=== PATIENT | male | born 1985 | race Caucasian/White ===

== ENCOUNTER 2019-07-31 10:04 | Inpatient (IN) | payer BC ==
[~2019-07-31] VITALS: Ht 180.3 cm; Wt 142.6 kg
[2019-07-31] MEDS ORDERED: MORPHINE SULFATE 2 MG/ML SYR 1ML IV STA (11:00)
[2019-07-31] MEDS ORDERED: ONDANSETRON HCL INJ 2MG/ML 2ML 2 MG/ML VIAL IV ONE (11:00)
[2019-07-31 12:23] LABS: BASOPHILS # (AUTO) 0.1 (0.0-0.1); BASOPHILS % 1.1 % (0.0-1.0); EOSINOPHILS # (AUTO) 0.4 (0.0-0.4); HEMATOCRIT 30.2 % (38.2-49.6); HEMOGLOBIN 9.7 g/dL (14.0-18.0); LYMPHOCYTES # (AUTO) 1.1 (1.0-3.2); LYMPHOCYTES % 15.4 % (18.0-39.1); MEAN CORPUSCULAR HEMOGLOBIN 30.4 pg (28-32); MEAN CORPUSCULAR HGB CONC 32.1 g/dL (31-35); MEAN CORPUSCULAR VOLUME 94.7 fL (81-99); MONOCYTES # (AUTO) 0.7 (0.2-0.8); MONOCYTES % 9.8 % (4.4-11.3); NEUTROPHILS % 67.3 % (38.7-80.0); PLATELET COUNT 70 x10e3/uL (140-360); RED BLOOD COUNT 3.19 x10e6/uL (4.3-5.7); RED CELL DISTRIBUTION WIDTH 16.7 % (11.7-14.4)
[2019-07-31 12:27] LABS: BILIRUBIN,URINE NEGATIVE (NEGATIVE); CLARITY,URINE CLEAR (CLEAR); COLOR,URINE YELLOW (YELLOW); KETONES,URINE NEGATIVE (NEGATIVE); LEUKOCYTE ESTERASE ,URINE TRACE (NEGATIVE); NITRITE,URINE POSITIVE (NEGATIVE); PROTEIN,URINE DIPSTICK TRACE (NEGATIVE); URINE UROBILINOGEN 0.2 mg/dL (0.2 - 1)
[2019-07-31 12:28] LABS: INR 1.59; PROTHROMBIN TIME 19.6 seconds (11.9-14.5)
[2019-07-31 12:29] LABS: PARTIAL THROMBOPLASTIN TIME 34.5 seconds (23.8-35.5)
[2019-07-31] MEDS ORDERED: MORPHINE SULFATE INJ 4 MG/ML INJ 1ML IV ONE (12:30)
[2019-07-31 12:38] LABS: ALANINE AMINOTRANSFERASE 21 IU/L (0-55); ALBUMIN/GLOBULIN RATIO 0.9 (0.8-2.0); ALKALINE PHOSPHATASE 68 IU/L (40-150); AMYLASE 56 U/L (25-125); ANION GAP 11.3 mmol/L (8-16); BLOOD UREA NITROGEN 14 mg/dL (7-26); BUN/CREATININE RATIO 16 (6-25); CALCIUM 8.3 mg/dL (8.4-10.2); CARBON DIOXIDE 24 mmol/L (22-29); CHLORIDE 104 mmol/L (98-107); CREATINE KINASE 111 IU/L (30-200); CREATININE, SERUM 0.85 mg/dL (0.72-1.25); EST GLOMERULAR FILTRATION RATE > 60 ML/MIN (60-); GLUCOSE 106 mg/dL (74-118); LIPASE 11 U/L (8-78); POTASSIUM 3.3 mmol/L (3.5-5.1); SODIUM 136 mmol/L (136-145)
--- NOTE | 2019-07-31 13:22 | Diagnostic Imaging Report ---
EXAMINATION: CHEST SINGLE (PORTABLE) INDICATION: Abdominal pain COMPARISON: None FINDINGS: LINES/TUBES:EKG leads overlie the chest. LUNGS:The lung volumes are low. No focal consolidation or pulmonary edema. PLEURA:No pleural effusion or pneumothorax. MEDIASTINUM:The cardiomediastinal silhouette appears normal in size and shape. BONES/SOFT TISSUES:No acute osseous injury. ABDOMEN:No free air under the diaphragm. IMPRESSION: Low lung volumes. No focal pneumonia or pulmonary edema. Signed by: Hernan Diaz MD on 07/31/2019 1:18 PM
[2019-07-31 13:34] LABS: BACTERIA,URINE RARE /HPF; EPITHELIAL CELLS,URINE FEW /LPF
[2019-07-31] MEDS ORDERED: HYDROCORTISONE SOD SUCCINATE 100 MG VIAL IV ONE (14:45)
--- NOTE | 2019-07-31 14:49 | Diagnostic Imaging Report ---
EXAM: CT Abdomen and Pelvis WITHOUT intravenous contrast INDICATION: Left abdominal pain COMPARISON: None. TECHNIQUE: Abdomen and pelvis were scanned utilizing a multidetector helical scanner from the lung base to the pubic symphysis without administration of IV contrast. Coronal and sagittal reformations were obtained. IV CONTRAST: None ORAL CONTRAST: Gastrografin COMPLICATIONS: None RADIATION DOSE: Total DLP: 1380.0 mGy*cm Dose modulation, iterative reconstruction, and/or weight based adjustment of the mA/kV was utilized to reduce the radiation dose to as low as reasonably achievable. FINDINGS: LOWER THORAX: Dependent subsegmental atelectasis at the right lower lobe. Moderate right pleural effusion. HEPATOBILIARY: The liver appears from can with the nodular surface contour consistent with cirrhosis. The main portal vein and splenic vein are enlarged. There are numerous extensive portosystemic collaterals. SPLEEN: Hypodense lesions in the spleen measure 2.9 cm superiorly and 5.6 cm inferiorly. The ascites along the lateral aspect of the spleen contains a hyperdense component, raising concern for possible splenic rupture or hemorrhage from the mass at the inferior aspect of the spleen. PANCREAS: No focal masses or ductal dilatation. ADRENALS: No adrenal nodules. KIDNEYS/URETERS: No hydronephrosis, stones, or solid mass lesions. PELVIC ORGANS/BLADDER: Unremarkable. PERITONEUM / RETROPERITONEUM: Large volume abdominal ascites. LYMPH NODES: No lymphadenopathy. VESSELS: Unremarkable. GI TRACT: Mild ascending and transverse colon wall thickening, possibly related to portal colopathy. No bowel obstruction. BONES AND SOFT TISSUES: No acute osseous injury. No suspicious lytic or blastic lesions. IMPRESSION: Hypodense lesions in the spleen measure 2.9 cm superiorly and 5.6 cm inferiorly. The ascites along the lateral aspect of the spleen contains a hyperdense component, raising concern for possible splenic rupture or hemorrhage from the mass at the inferior aspect of the spleen. Severe hepatic cirrhosis and portal hypertension with large volume of abdominal ascites and hepatic hydrothorax. Extensive portosystemic collaterals. RECOMMENDATIONS: Urgent contrast enhanced CT to assess for active extravasation from possible splenic rupture. Patient has a contrast allergy and as he is currently hemodynamically stable, will be premedicated per discussion with Dr. Knight. The above findings were discussed with Dr. Knight on 07/31/2019 2:14 PM, who responded indicating that the communication was understood. Signed by: Hernan Diaz MD on 07/31/2019 2:46 PM
[2019-07-31] MEDS ORDERED: VANCOMYCIN 1GM/NS 250 ML 250 ML IV ONE (15:30)
[2019-07-31] MEDS: CEFEPIME 2 GM/NS 0.9% 100 ML 100 ML IV SCH (15:40)
[2019-07-31] MEDS ORDERED: PANTOPRAZOLE 40 MG 10ML VIAL IV STA (15:49)
[2019-07-31] MEDS ORDERED: OCTREOTIDE ACETATE 500 MCG in SODIUM CHLORIDE 0.9% 500ML 1 ML IV SCH (16:00)
[2019-07-31] MEDS ORDERED: OCTREOTIDE ACETATE 0.05 MG/ML AMP IV ONE (16:00)
[2019-07-31] MEDS ORDERED: ONDANSETRON HCL INJ 2MG/ML 2ML 2 MG/ML VIAL IV PRN (16:00)
[2019-07-31] MEDS: OCTREOTIDE ACETATE 500 MCG in SODIUM CHLORIDE 0.9% 250ML 250 ML IV SCH (16:20)
[2019-07-31] MEDS ORDERED: DIPHENHYDRAMINE HCL INJ 50 MG/ML VIAL IV ONE (16:40)
--- NOTE | 2019-07-31 17:17 | NUR ---
SPOKE TO MARIE, PLASMA READY. PRIMARY NURSE AWARE
--- OUTSIDE RECORDS SUMMARY | 2019-07-31 17:21 | XMS REPORT ---
[facility] Address Unknown Phone Unavailable Care Team Providers Care Pairer Substandard Name Role Phone Blanca NEIL Unavailable Unavailable Problems This patient has no known problems. Allergies, Adverse Reactions, Alerts This patient has no known allergies or adverse reactions. Medications This patient has no known medications. Results Test Description Test Time Test Comments Text Results Atomic Results Result Comments CT ABDOMEN/PELVIS WO 2019-07-31 14:14:00 [facility] [address] [address] Patient Name: TRACY LEARY MR #: [id number] : 1985 Age/Sex: 34/M Req #: [id number] Adm Physician: Ordered by: KEESHA NEIL MD Report #: [id number] Location: ER Room/Bed: Procedure: [id number] CT/CT ABDOMEN/PELVIS WO Exam Date: 07/31/19 Exam Time: 1350 REPORT STATUS: Signed EXAM: CT Abdomen and Pelvis WITHOUT intravenous contras t INDICATION: Left abdominal pain COMPARISON: None. TECHNIQUE: Abdomen and pelvis were scanned utilizing a multidetector helical scanner from the lung base to the pubic symphysis without administration of IV contrast. Coronal and sagittal reformations were obtained. IV CONTRAST: None ORAL CONTRAST: Gastrografin COMPLICATIONS: None RADIATION DOSE: Total DLP: 1380.0 mGy*cm Dose modulation, iterative reconstruction, and/or weight based adjustment of the mA/kV was utilized to reduce the radiation dose to as low as reasonably achievable. FINDINGS: LOWER THORAX: Dependent subsegmental atelectasis at the right lower lobe. Moderate right pleural effusion. HEPATOBILIARY: The liver appears from can with the nodular surface contour consistent with cirrhosis. The main portal vein and splenic vein are enlarged. There are numerous extensive portosystemic collaterals. SPLEEN: Hypodense lesions in the spleen measure 2.9 cm superiorly and 5.6 cm inferiorly. The ascites along the lateral aspect of the spleen contains a hyperdense component, raising concern for possible splenic rupture or hemorrhage from the mass at the inferior aspect of the spleen. PANCREAS: No focal masses or ductal dilatation. ADRENALS: No adrenal nodules. KIDNEYS/URETERS: No hydronephrosis, stones, or solid mass lesions. PELVIC ORGANS/BLADDER: Unremarkable. PERITONEUM / RETROPERITONEUM: Large volume abdominal ascites. LYMPH NODES: No lymphadenopathy. VESSELS: Unremarkable. GI TRACT: Mild ascending and transverse colon wall thickening, possibly related to portal colopathy. No bowel obstruction. BONES AND SOFT TISSUES: No acute osseous injury. No suspicious lytic or blastic lesions. IMPRESSION: Hypodense lesions in the spleen measure 2.9 cm superiorly and 5.6 cm inferiorly. The ascites along the lateral aspect of the spleen contains a hyperdense component, raising concern for possible splenic rupture or hemorrhage from the mass at the inferior aspect of the spleen. Severe hepatic cirrhosis and portal hypertension with large volume of abdominal ascites and hepatic hydrothorax. Extensive portosystemic collaterals. RECOMMENDATIONS: Urgent contrast enhanced CT to assess for active extravasation from possible splenic rupture. Patient has a contrast allergy and as he is currently hemodynamically stable, will be premedicated per discussion with Dr. Neil. The above findings were discussed with Dr. Neil on 07/31/2019 2:14 PM, who responded indicating that the communication was understood. Signed by: Edel Steele MD on 07/31/2019 2:46 PM Dictated By: EDEL STEELE MD [id number] Transcribed By: JAY on 07/31/19 1446 COPY TO: KEESHA NEIL MD CHEST SINGLE (PORTABLE) 2019-07-31 13:18:[address] [place], [place] [address] Patient Name: TRACY LEARY MR #: [id number] : 1985 Age/Sex: 34/M Req #: [id number] [facility] Physician: Ordered by: KEESHA NEIL MD Report #: [id number] Location: ER Room/Bed: Procedure: [id number] DX/CHEST SINGLE (PORTABLE) Exam Date: Exam Time: REPORT STATUS: Signed EXAMINATION: CHEST SINGLE (PORTABLE) INDICATION: Abd ominal pain COMPARISON: None FINDINGS: LINES/TUBES:EKG leads overlie the chest. LUNGS:The lung volumes are low. No focal consolidation or pulmonary edema. PLEURA:No pleural effusion or pneumothorax. MEDIASTINUM:The cardiomediastinal silhouette appears normal in size and shape. BONES/SOFT TISSUES:No acute osseous injury. ABDOMEN:No free air under the diaphragm. IMPRESSION: Low lung volumes. No focal pneumonia or pulmonary edema. Signed by: Edel Steele MD on 07/31/2019 1:18 PM Dictated By: EDEL STEELE MD Transcribed By: JAY on 07/31/191317 COPY TO: KEESHA NEIL MD
[2019-07-31] MEDS ORDERED: SODIUM CHLORIDE 0.9% 250ML 250 ML ONE (17:26)
--- NOTE | 2019-07-31 17:38 | Diagnostic Imaging Report ---
EXAM: CT Abdomen and Pelvis WITHOUT and WITH intravenous contrast INDICATION: Left abdominal pain COMPARISON: None. TECHNIQUE: Abdomen and pelvis were scanned utilizing a multidetector helical scanner from the lung base to the pubic symphysis after administration of IV contrast. Coronal and sagittal reformations were obtained. Routine protocol was performed. Scan was performed during portal venous phase. IV CONTRAST: 100mL of Isovue 370 ORAL CONTRAST: None COMPLICATIONS: None RADIATION DOSE: Total DLP: 3391.9 mGy*cm Dose modulation, iterative reconstruction, and/or weight based adjustment of the mA/kV was utilized to reduce the radiation dose to as low as reasonably achievable. FINDINGS: LOWER THORAX: Dependent subsegmental atelectasis at the right lower lobe. Moderate right pleural effusion. HEPATOBILIARY: The liver appears shrunken with nodular surface contour consistent with cirrhosis. The main portal vein and splenic vein are enlarged. There are numerous extensive portosystemic collaterals. SPLEEN: Hypodense lesions in the spleen measure 2.9 cm superiorly and 5.6 cm inferiorly, possibly representing infarcts. There are numerous collateral vessels posterior to the spleen associated with splenorenal shunt. PANCREAS: No focal masses or ductal dilatation. ADRENALS: No adrenal nodules. KIDNEYS/URETERS: No hydronephrosis, stones, or solid mass lesions. PELVIC ORGANS/BLADDER: Unremarkable. PERITONEUM / RETROPERITONEUM: Large volume abdominal ascites. LYMPH NODES: No lymphadenopathy. VESSELS: Extensive portosystemic collaterals as above. GI TRACT: Mild ascending and transverse colon wall thickening, possibly related to portal colopathy. No bowel obstruction. BONES AND SOFT TISSUES: No acute osseous injury. No suspicious lytic or blastic lesions. IMPRESSION: Severe hepatic cirrhosis and portal hypertension with large volume of abdominal ascites and hepatic hydrothorax. Extensive portosystemic collaterals. The hyperdense material seen on the previous exam along the dependent aspect of the left abdominal are collateral vessels associated with a splenorenal shunt. Hypodense lesions in the spleen measure 2.9 cm superiorly and 5.6 cm inferiorly and may represent infarcts versus less likely a lymphoproliferative process. Signed by: Hernan Diaz MD on 07/31/2019 5:34 PM
--- NOTE | 2019-07-31 17:45 | NUR ---
started FFP as ordered
[2019-07-31] MEDS ORDERED: SODIUM CHLORIDE 0.9% 50ML 50 ML ONE (17:58)
[2019-07-31] MEDS ORDERED: IOPAMIDOL 370 MG/ML 200 ML INFUS..BTL INJ ONE (17:58)
--- NOTE | 2019-07-31 18:14 | NUR ---
completed FFP, LYNETTE noted
[2019-07-31 20:30] VITALS: BP_SYST 121; BP_SYST 141; BP_DIAS 58; BP_DIAS 74
[2019-07-31 20:59] VITALS: BP 121/58
[2019-07-31 21:00] VITALS: BP 128/67
[2019-07-31] MEDS ORDERED: HYDROCODONE/APAP 5MG-325MG TAB PO PRN (21:00)
[2019-07-31] MEDS ORDERED: ACETAMINOPHEN 325 MG TAB PO PRN (21:00)
[2019-07-31] MEDS: PANTOPRAZOLE 40 MG 10ML VIAL IV SCH (21:02)
[2019-07-31 21:30] LABS: EOSINOPHILS % 0.3 % (0.0-6.0); HEMOGLOBIN 7.7 g/dL (14.0-18.0); LYMPHOCYTES # (AUTO) 0.3 (1.0-3.2); LYMPHOCYTES % 9.9 % (18.0-39.1); MEAN CORPUSCULAR HEMOGLOBIN 30.2 pg (28-32); MEAN CORPUSCULAR HGB CONC 32.1 g/dL (31-35); MEAN CORPUSCULAR VOLUME 94.1 fL (81-99); MONOCYTES # (AUTO) 0.1 (0.2-0.8); MONOCYTES % 4.8 % (4.4-11.3); NEUTROPHILS # (AUTO) 2.5 (2.1-6.9); NEUTROPHILS % 84.7 % (38.7-80.0); PLATELET COUNT 50 x10e3/uL (140-360); RED BLOOD COUNT 2.55 x10e6/uL (4.3-5.7); RED CELL DISTRIBUTION WIDTH 16.9 % (11.7-14.4)
[2019-07-31 22:00] VITALS: BP 144/81
--- NOTE | 2019-07-31 22:37 | NUR ---
Notified Dr. Trujillo of CBC results. order received to transfuse 2 PRBC if Hgb <7.0 aware that 2 PRBCs are currently on hold.
[2019-07-31 23:00] VITALS: BP 145/69
[2019-08-01] VITALS (23 sets, daily range): BP systolic 104–143; BP diastolic 50–77
--- NOTE | 2019-08-01 02:20 | Consultation ---
DATE OF CONSULTATION: 07/31/2019 CHIEF COMPLAINT: Abdominal pain and diarrhea. HISTORY OF PRESENT ILLNESS: The patient is a 34-year-old male with known history of liver cirrhosis, secondary to fatty liver/ELY. The patient has been having chronic abdominal pain, particularly in the left upper quadrant which has been intensified of late and associating with diarrhea. The patient denies vomiting or hematemesis. PAST MEDICAL HISTORY: As mentioned, positive for liver cirrhosis. SOCIAL HABITS: The patient denies smoking or drinking alcohol. REVIEW OF SYSTEMS: He denied chest pain or shortness of breath. He denied history of hepatitis. PHYSICAL EXAMINATION: VITAL SIGNS: Stable, afebrile. GENERAL: He is awake, alert, in smrr-ut-zhstacak discomfort. HEENT: Sclerae nonicteric. NECK: Supple. LUNGS: Clear. HEART: Regular rate and rhythm. ABDOMEN: Distended with ascites. There is some guarding in the upper abdomen on the left side without any rebound. EXTREMITIES: With some ankle edema. LABORATORY DATA: The patient's white cell count is 7, hemoglobin of 9.7, platelet count 70. Creatinine is 0.8. Liver function tests show bilirubin of 2.4, alkaline phosphatase 68. CT of the abdomen show evidence of severe hepatic cirrhosis with portal hypertension and large varices in the left upper abdomen associated with splenorenal shunt. There is also evidence of splenic infarct. ASSESSMENT: Abdominal pain, diarrhea in a patient with liver cirrhosis. Splenic infarct is the underlying cause of pain. PLAN: Diet as tolerated. Pain management. We will follow the patient. MD GEOVANI Garcia/MODFrank /[id number]
[2019-08-01] MEDS ORDERED: SODIUM CHLORIDE 0.9% 250ML 250 ML ONE (03:00)
[2019-08-01] MEDS: OCTREOTIDE ACETATE 500 MCG in SODIUM CHLORIDE 0.9% 250ML 250 ML IV SCH ×2 (03:28→11:08)
[2019-08-01] MEDS: CEFEPIME 2 GM/NS 0.9% 100 ML 100 ML IV SCH ×2 (03:28→15:05)
[2019-08-01 05:15] LABS: BASOPHILS % 0.3 % (0.0-1.0); EOSINOPHILS % 0.2 % (0.0-6.0); HEMATOCRIT 24.1 % (38.2-49.6); HEMOGLOBIN 7.7 g/dL (14.0-18.0); LYMPHOCYTES # (AUTO) 0.7 (1.0-3.2); LYMPHOCYTES % 11.4 % (18.0-39.1); MEAN CORPUSCULAR HEMOGLOBIN 30.2 pg (28-32); MEAN CORPUSCULAR VOLUME 94.5 fL (81-99); MONOCYTES # (AUTO) 0.8 (0.2-0.8); MONOCYTES % 13.5 % (4.4-11.3); NEUTROPHILS # (AUTO) 4.5 (2.1-6.9); NEUTROPHILS % 74.3 % (38.7-80.0); PLATELET COUNT 55 x10e3/uL (140-360); RED BLOOD COUNT 2.55 x10e6/uL (4.3-5.7); RED CELL DISTRIBUTION WIDTH 16.8 % (11.7-14.4)
[2019-08-01 05:27] LABS: INR 1.54; PROTHROMBIN TIME 19.1 seconds (11.9-14.5)
[2019-08-01 05:33] LABS: ALANINE AMINOTRANSFERASE 20 IU/L (0-55); ALBUMIN 2.8 g/dL (3.5-5.0); ALBUMIN/GLOBULIN RATIO 0.9 (0.8-2.0); ALKALINE PHOSPHATASE 57 IU/L (40-150); ANION GAP 10.2 mmol/L (8-16); BLOOD UREA NITROGEN 19 mg/dL (7-26); BUN/CREATININE RATIO 18 (6-25); CALCIUM 8.1 mg/dL (8.4-10.2); CARBON DIOXIDE 25 mmol/L (22-29); CHLORIDE 103 mmol/L (98-107); CREATININE, SERUM 1.08 mg/dL (0.72-1.25); EST GLOMERULAR FILTRATION RATE > 60 ML/MIN (60-); GLUCOSE 135 mg/dL (74-118); SODIUM 134 mmol/L (136-145)
[2019-08-01 05:36] LABS: POTASSIUM 4.2 mmol/L (3.5-5.1)
[2019-08-01] MEDS: PANTOPRAZOLE 40 MG 10ML VIAL IV SCH ×2 (08:02→20:00)
[2019-08-01 12:34] LABS: BASOPHILS % 0.5 % (0.0-1.0); EOSINOPHILS # (AUTO) 0.1 (0.0-0.4); EOSINOPHILS % 1.5 % (0.0-6.0); HEMATOCRIT 23.8 % (38.2-49.6); HEMOGLOBIN 7.6 g/dL (14.0-18.0); LYMPHOCYTES # (AUTO) 0.8 (1.0-3.2); LYMPHOCYTES % 14.1 % (18.0-39.1); MEAN CORPUSCULAR HGB CONC 31.9 g/dL (31-35); MEAN CORPUSCULAR VOLUME 94.1 fL (81-99); MONOCYTES # (AUTO) 0.6 (0.2-0.8); MONOCYTES % 11.5 % (4.4-11.3); NEUTROPHILS % 72.2 % (38.7-80.0); PLATELET COUNT 59 x10e3/uL (140-360); RED BLOOD COUNT 2.53 x10e6/uL (4.3-5.7)
--- NOTE | 2019-08-01 15:00 | NUR ---
Dr. Fowler's office contacted and informed of new consult.
[2019-08-01 19:09] LABS: BASOPHILS % 0.6 % (0.0-1.0); EOSINOPHILS # (AUTO) 0.1 (0.0-0.4); HEMATOCRIT 24.3 % (38.2-49.6); HEMOGLOBIN 7.7 g/dL (14.0-18.0); LYMPHOCYTES # (AUTO) 0.9 (1.0-3.2); LYMPHOCYTES % 17.3 % (18.0-39.1); MEAN CORPUSCULAR HEMOGLOBIN 30.1 pg (28-32); MEAN CORPUSCULAR HGB CONC 31.7 g/dL (31-35); MEAN CORPUSCULAR VOLUME 94.9 fL (81-99); MONOCYTES # (AUTO) 0.7 (0.2-0.8); MONOCYTES % 13.9 % (4.4-11.3); NEUTROPHILS # (AUTO) 3.3 (2.1-6.9); NEUTROPHILS % 65.8 % (38.7-80.0); RED BLOOD COUNT 2.56 x10e6/uL (4.3-5.7); RED CELL DISTRIBUTION WIDTH 17.1 % (11.7-14.4)
[2019-08-01 19:11] LABS: PLATELET COUNT 58 x10e3/uL (140-360)
--- NOTE | 2019-08-01 20:21 | History and Physical ---
CONTINUATION: Also, we are going to order an echocardiogram to rule out a likely possibility of endocarditis or any thrombus coming from the heart. MD ERIC Rossi/CAMPBELL /[id number]
--- NOTE | 2019-08-01 20:51 | History and Physical ---
HISTORY OF PRESENT ILLNESS: The patient is a 34-year-old male with past medical history only positive for idiopathic cirrhosis of the liver, came here with abdominal pain. He was found to have splenic infarct. He was admitted to intensive care unit, seen by Dr. Nam. Started octreotide. The patient is on Protonix. The patient is going to be seen by program evaluation consultant also. REVIEW OF SYSTEMS: CARDIOVASCULAR: No chest pain or palpitation. RESPIRATORY: No shortness of breath. No cough. GASTROINTESTINAL: No nausea, vomiting, or diarrhea. He did have a left upper quadrant pain, which is completely resolved. EXTREMITIES: Show no evidence of cyanosis or hematoma. LABORATORY DATA: On the BMP; sodium 134, potassium 4.2, chloride 103, CO2 of 25, BUN 19, creatinine 1.08, and glucose 135. On the CBC, white blood count 5.47, hemoglobin 7.6, hematocrit 23.8, and platelet count 59,000. PT 19.1, INR 1.54, and PTT 38.0. AST 25, ALT 20, total bilirubin 1.8, and alkaline phosphatase 57. CT of the abdomen shows some evidence of splenic infarct, cirrhosis of the liver, portal hypertension. Urine culture show evidence of gram-negative bacteria. FINAL IMPRESSION: 1. Splenic infarct. 2. Cirrhosis of the liver. 3. Pancytopenia. 4. Obesity. 5. Urinary tract infection. 6. Coagulopathy. 7. Portal hypertension. PLAN OF TREATMENT: We are going to continue cefepime 1 g IV twice a day. Continue with Zofran 4 mg IV every 4 hours as needed, Protonix 40 mg twice a day, Tylenol 325 mg every 4 hours as needed, and [place] 5/325 mg every 6 hours as needed for gjysjttb-cr-yeywhg pain. Dr. Nam consulted from the surgical point of view because originally according to the emergency room physician, there was some evidence of hematoma of the spleen, but later on turned to be just a splenic infarct. We are going to also get a Gastroenterology consult with Dr. Fowler for further evaluation of the origin of the splenic infarct. MD ERIC Rossi/MODL /[id number]
[2019-08-01] MEDS ORDERED: LACTULOSE SYRUP 20 GM/30 ML UDC PO PRN (21:45)
--- NOTE | 2019-08-01 23:30 | NUR ---
Discussed planned thoracentesis and paracentesis with patient. Patient agreed to procedures but would like to speak with MD before signing consent. Unsigned consents on chart. Provided patient written education material on procedures and new medication.
[2019-08-01] MEDS: RIFAXIMIN 550 MG TABLET PO SCH (23:45)
[2019-08-02] VITALS (7 sets, daily range): BP systolic 117–166; BP diastolic 62–86
[2019-08-02] MEDS: CEFEPIME 2 GM/NS 0.9% 100 ML 100 ML IV SCH ×2 (03:25→16:23)
--- NOTE | 2019-08-02 05:09 | Consultation ---
DATE OF CONSULTATION: 08/01/2019 GI Consult Note REASON FOR CONSULT: 1. Decompensated cryptogenic liver cirrhosis with ascites, portal hypertension, right hepatic hydrothorax. 2. Splenic infarct. HISTORY OF PRESENTING ILLNESS: A 34 years old white male, who has not been seeing any doctor. He has known history of cryptogenic liver cirrhosis with ascites for more than couple of years. He stated that he used to see some gastroenterologists in the past, then he stopped seeing them. The reason for him not to follow with the doctor is not clear. He just ignored about his health. He got admitted to the emergency room with acute onset of mid abdominal pain. Noncontrast CT scan showed possible splenic rupture, however, subsequent CT scan of the abdomen and pelvis with contrast revealed medium-sized splenic infarct. The patient reports no abdominal pain now. He was initially admitted in the ICU, likely going to be transferred to the medical floor today. No episode of any GI bleeding. REVIEW OF SYSTEMS: Twelve-point system reviewed, symptomatology is limited as per HPI. 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 The patient has known history of fatty liver and dyslipidemia. PAST SURGICAL HISTORY: None. SOCIAL HISTORY: No smoking, alcohol, or any illicit drug use. Lives with his mother. FAMILY HISTORY: Noncontributory. ALLERGIES: IODINE. HOME MEDICATIONS: None. Inpatient medications list reviewed as per MAR. PHYSICAL EXAMINATION: VITAL SIGNS: Temperature 98.5, pulse ranging from 110 to 103, respirations 20 to 27, blood pressure 137/63, oxygen saturation 99% on room air. GENERAL: Not in any acute distress. HEENT: Oral mucosa is moist. Slightly icteric sclerae. CVS: S1, S2. Regular. LUNGS: Decreased breath sounds at the right lower lung field, lung sounds relatively clear on the left side. ABDOMEN: Distended, shifting dullness present. Nontender. Abdominal examination is limited, secondary to ascites. No appreciable mass or any hernia. EXTREMITIES: Trace bilateral leg edema. LABORATORY DATA: Sodium 134, potassium 4.2, chloride 103, bicarb 25. BUN 19, creatinine 1.08, glucose 135. Liver enzymes showed a total bilirubin of 1.8 down from 2.4. AST 25, ALT 20, alkaline phosphatase 57, and albumin 2.8. WBC 4.97, hemoglobin down to 7.7 from 9.7, hematocrit 24.3, platelet count 58. PT 19.1, INR 1.54. Urinalysis showed positive nitrite, trace blood, and leukocyte esterase trace. WBC 6 to 10 per high-power field. CT of the abdomen and pelvis with and without contrast showed severe hepatic cirrhosis with portal hypertension, large ascites, and right hepatic hydrothorax. Extensive portosystemic collaterals. The hyperdense material seen on the previous exam along the dependent aspect of left abdomen are collateral vessels associated with splenorenal shunt. Hypodense lesion in the spleen measures 2.9 cm superiorly and 5.6 cm inferiorly. This may represent infarct versus less likely lymphoproliferative process. IMPRESSION: 1. Cryptogenic, likely nonalcoholic steatohepatitis related decompensated liver cirrhosis with large ascites, right hydrothorax, portal hypertension, portosystemic shunting. 2. Splenic infarct. PLAN: First of all, the patient needs strict outpatient management of decompensated liver cirrhosis. I had a detailed discussion about the patient that he is young, he is also a good candidate for liver transplant. New liver means new life. He should definitely not ignore about himself. I have given him my business card. He is going to follow up with me in my office strictly. In the interim, we will put him on low-salt diet. IR consult for right hydrothorax, paracentesis, as well as large volume paracentesis. Start dual diuretics, combination of furosemide and spironolactone in the ratio of 1:4. We will put him on furosemide 40 mg daily and spironolactone 100 mg daily. Lactulose to ensure 1 or 2 bowel movement daily. Xifaxan prophylactically for prevention of hepatic encephalopathy. Definitely, he needs upper endoscopy for screening of varices. [facility] once he starts following with me in the office. In regard to his splenic infarct, nothing to be done. The patient has a good portosystemic circulation. Therefore, I do not suspect any further infarction of the spleen. No portal vein thrombosis reported on CT. I thank Dr. Trujillo for allowing me to participate in the care of this patient. Bruno Whatley MD SA/CAMPBELL /[id number]
[2019-08-02 05:27] LABS: BASOPHILS % 1.1 % (0.0-1.0); EOSINOPHILS # (AUTO) 0.1 (0.0-0.4); EOSINOPHILS % 3.2 % (0.0-6.0); HEMATOCRIT 20.4 % (38.2-49.6); LYMPHOCYTES # (AUTO) 0.5 (1.0-3.2); LYMPHOCYTES % 24.7 % (18.0-39.1); MEAN CORPUSCULAR HEMOGLOBIN 30.7 pg (28-32); MEAN CORPUSCULAR HGB CONC 32.4 g/dL (31-35); MEAN CORPUSCULAR VOLUME 94.9 fL (81-99); MONOCYTES # (AUTO) 0.3 (0.2-0.8); MONOCYTES % 14.7 % (4.4-11.3); NEUTROPHILS # (AUTO) 1.1 (2.1-6.9); NEUTROPHILS % 55.8 % (38.7-80.0); RED BLOOD COUNT 2.15 x10e6/uL (4.3-5.7); RED CELL DISTRIBUTION WIDTH 16.8 % (11.7-14.4)
[2019-08-02 05:33] LABS: HEMOGLOBIN 6.6 g/dL (14.0-18.0)
[2019-08-02 05:36] LABS: PLATELET COUNT 42 x10e3/uL (140-360)
[2019-08-02 06:31] LABS: BASOPHILS % 1.2 % (0.0-1.0); EOSINOPHILS # (AUTO) 0.1 (0.0-0.4); EOSINOPHILS % 4.8 % (0.0-6.0); LYMPHOCYTES # (AUTO) 0.4 (1.0-3.2); LYMPHOCYTES % 24.8 % (18.0-39.1); MEAN CORPUSCULAR HEMOGLOBIN 30.8 pg (28-32); MEAN CORPUSCULAR VOLUME 96.2 fL (81-99); MONOCYTES # (AUTO) 0.2 (0.2-0.8); MONOCYTES % 13.3 % (4.4-11.3); NEUTROPHILS # (AUTO) 0.9 (2.1-6.9); NEUTROPHILS % 55.3 % (38.7-80.0); RED BLOOD COUNT 2.08 x10e6/uL (4.3-5.7); RED CELL DISTRIBUTION WIDTH 16.9 % (11.7-14.4)
[2019-08-02 06:37] LABS: HEMOGLOBIN 6.4 g/dL (14.0-18.0)
[2019-08-02 06:38] LABS: PLATELET COUNT 39 x10e3/uL (140-360)
[2019-08-02 07:29] LABS: EOSINOPHILS % (MANUAL) 4 % (0-7); LYMPHOCYTES % (MANUAL) 25 % (19-48); MONOCYTES % (MANUAL) 14 % (3.4-9.0); NEUTROPHILS % (MANUAL) 57 % (40-74); PLATELET ESTIMATE MARKEDLY DECREASED
[2019-08-02 07:30] LABS: PLATELET MORPHOLOGY COMMENT FEW LARGE; RBC MORPHOLOGY COMMENT NORMAL
[2019-08-02 07:40] LABS: EOSINOPHILS % (MANUAL) 4 % (0-7); LYMPHOCYTES % (MANUAL) 25 % (19-48); MONOCYTES % (MANUAL) 15 % (3.4-9.0); NEUTROPHILS % (MANUAL) 56 % (40-74)
[2019-08-02 07:41] LABS: PLATELET ESTIMATE MARKEDLY DECREASED; PLATELET MORPHOLOGY COMMENT FEW LARGE; RBC MORPHOLOGY COMMENT NORMAL
--- NOTE | 2019-08-02 07:41 | NUR ---
Dr. Trujillo paged through answering service at 0745 regarding CBC levels.
[2019-08-02] MEDS ORDERED: SODIUM CHLORIDE 0.9% 250ML 250 ML IV ONE ×2 (08:15→15:00)
[2019-08-02] MEDS ORDERED: RIFAXIMIN 200 MG TAB PO SCH (09:00)
--- NOTE | 2019-08-02 09:00 | NUR ---
Per Radiology request, paged Dr Trujillo to inquire of need for PLT prior to procedure. Radiologist aware that patient requests to speak with him prior to consenting to procedure. Dr Trujillo ordered transfusion of 2 units platelets.
[2019-08-02] MEDS: PANTOPRAZOLE 40 MG 10ML VIAL IV SCH ×2 (09:55→21:44)
[2019-08-02] MEDS: FUROSEMIDE 40 MG TAB PO SCH (09:55)
[2019-08-02] MEDS: SPIRONOLACTONE 25 MG TAB PO SCH (09:55)
[2019-08-02] MEDS: RIFAXIMIN 550 MG TABLET PO SCH ×2 (09:55→16:23)
[2019-08-02] MEDS ORDERED: DIPHENHYDRAMINE HCL INJ 50 MG/ML VIAL IV PRN (10:45)
--- NOTE | 2019-08-02 13:15 | NUR ---
Dr Trujillo to bedside; orders rec'd. Okay for patient to transfer to Med Surg with telemetry post procedure.
--- NOTE | 2019-08-02 13:30 | NUR ---
Dr Muñoz, hematology, made aware of consult by operations and maintenance technician.
--- NOTE | 2019-08-02 15:30 | NUR ---
Dr Muñoz to bedside, patient updated on plan of care. Patient with questions and concerns regarding the paracentesis and thoracentesis; called Dr Whatley to verify the procedure is indicated and benefits outweigh risks. Per patient request, radiologist to bedside and spoke with patient regarding the procedure, risks and benefits, and consent obtained.
[2019-08-02 16:29] LABS: BASOPHILS % 0.5 % (0.0-1.0); EOSINOPHILS # (AUTO) 0.1 (0.0-0.4); EOSINOPHILS % 3.1 % (0.0-6.0); HEMATOCRIT 24.3 % (38.2-49.6); HEMOGLOBIN 7.9 g/dL (14.0-18.0); LYMPHOCYTES # (AUTO) 0.4 (1.0-3.2); LYMPHOCYTES % 21.4 % (18.0-39.1); MEAN CORPUSCULAR HEMOGLOBIN 30.3 pg (28-32); MEAN CORPUSCULAR HGB CONC 32.5 g/dL (31-35); MEAN CORPUSCULAR VOLUME 93.1 fL (81-99); MONOCYTES # (AUTO) 0.2 (0.2-0.8); MONOCYTES % 10.9 % (4.4-11.3); NEUTROPHILS # (AUTO) 1.2 (2.1-6.9); NEUTROPHILS % 63.6 % (38.7-80.0); RED BLOOD COUNT 2.61 x10e6/uL (4.3-5.7); RED CELL DISTRIBUTION WIDTH 17.5 % (11.7-14.4)
[2019-08-02 16:35] LABS: PLATELET COUNT 57 x10e3/uL (140-360)
--- NOTE | 2019-08-02 16:40 | NUR ---
Spoke with Dr Trujillo regarding WBCs. No new orders.
--- NOTE | 2019-08-02 16:47 | Progress Note ---
DATE: Internal Medicine Progress Note SUBJECTIVE: The patient is getting blood transfusion, platelet transfusion. He went for thoracentesis and paracentesis today due to ascites and pleural effusion. We are going to monitor of course the CBC after the blood transfusion. PHYSICAL EXAMINATION: HEART: Regular rhythm. Normal S1, S2 sound. LUNGS: Clear bilaterally. ABDOMEN: Soft, slightly distended. VITAL SIGNS: Blood pressure 117/63, temperature 98.0, heart rate 85 per minute, respiratory rate 22 per minute, oxygen saturation 99%. LABORATORY DATA: BMP; sodium 134, potassium 4.2, chloride 103, CO2 25, BUN 18, creatinine 1.08, glucose 135. On CBC, white count 1.65, hemoglobin 6.4, hematocrit 20.0, platelet count 39,000. PT 19.1, INR 1.54, PTT 38.0, AST 25, ALT 20, total bilirubin 1.8, alkaline phosphatase 57. IMPRESSION: 1. Splenic infarct. 2. Cirrhosis with ascites. 3. Urinary tract infection. 4. Obesity. 5. Pancytopenia. 6. Right effusion. 7. Coagulopathy secondary to cirrhosis. PLAN OF TREATMENT: Transfuse platelets and PRBC. Continue cefepime 2 g IV twice a day because of UTI. Continue Zofran 4 mg IV q.4 hours as needed, Protonix 40 mg twice a day, furosemide 40 mg daily, Aldactone 100 mg daily, Benadryl 25 mg q.6 hours as needed, Xifaxan 550 mg twice a day. The patient will be moved out of the ICU today. I discussed the case with the patient at the bedside. Time spent around 55 minutes. MD ERIC Rossi/CAMPBELL /[id number]
--- NOTE | 2019-08-02 17:20 | NUR ---
Radiologist to bedside for thoracentesis and paracentesis.
[2019-08-02] MEDS ORDERED: LIDOCAINE HCL 2% LOCAL 20 ML VIAL ONE (17:51)
--- NOTE | 2019-08-02 17:51 | NUR ---
Spoke with Dr Tico Goins regarding Dr Whatley's order for paracentesis and thoracentesis and possible need for testing on the fluid collected. No new orders.
--- NOTE | 2019-08-02 19:00 | NUR ---
Report received. Assumed care. Assessment done. See interventions. IV saline locked. Ambulates to restroom. No c/o or distress observed. Denies pain.
--- NOTE | 2019-08-02 19:03 | Diagnostic Imaging Report ---
A single frontal view of the chest. HISTORY: Abdominal pain, cirrhosis, status post thoracentesis COMPARISON: Lung bases from CT of the abdomen July 31, 2019. DISCUSSION: Portable technique, limits sensitivity of the exam. Soft tissue attenuation partially limits sensitivity of the exam. Multiple overlying artifacts. Tubes/Lines: None Lungs and pleura: Low lung volumes result in bibasilar vascular crowding, accentuation of the pulmonary interstitial markings, central pulmonary vasculature, and the cardiac silhouette. Allowing for these limitations, the findings are as follows: Patchy interstitial and airspace opacities of the right mid to lower lung. Heart and mediastinum: The cardiac silhouette appear(s) within the upper limits of normal. Bones and soft tissues: Appear unremarkable, given this limited exam. IMPRESSION: 1. Right mid to lower lung patchy interstitial and airspace opacities, consider reexpansion edema. 2. No pneumothorax or significant residual effusion is visible. Signed by: Dr. Baldev Tran D.O., M.M.M. on 08/02/2019 7:00 PM
--- NOTE | 2019-08-02 19:06 | NUR ---
Dr Whatley to bedside; orders rec'd. Spoke with Dr Trujillo, made aware of the bloody drainage from the paracentesis and thoracentesis.
[2019-08-02 20:23] LABS: BODY FLUID APPEARANCE TURBID; BODY FLUID COLOR RED; BODY FLUID TYPE PLEURAL
--- NOTE | 2019-08-02 20:24 | NUR ---
Report called to Jumana LOPEZ on MS 1.
--- NOTE | 2019-08-02 20:30 | NUR ---
Transferred per wheelchair with telemetry to 102.
--- NOTE | 2019-08-02 20:34 | NUR ---
PATIENT ARRIVED TO THE UNIT VIA WHEELCHAIR FROM ICU. RECEIVED REPORT FROM VIRGIE, ICU NURSE. PATIENT IN NO PAIN OR DISTRESS. CALL LIGHT WITHIN REACH. BELONGINGS WITH PATIENT.
[2019-08-02 20:48] LABS: RBC,BODY FLUID 222849 cells/uL; WBC,BODY FLUID 8514 cells/uL
[2019-08-02 21:14] LABS: LYMPHOCYTES,BODY FLUID 9 %; MONO/MACROPHG,BODY FLUID 27 %; NEUTROPHILS,BODY FLUID 23 %; OTHER CELLS,BODY FLUID 41 %
--- NOTE | 2019-08-02 22:53 | Progress Note ---
DATE: 08/02/2019 SUBJECTIVE: The patient is feeling much more relieved after getting a large volume paracentesis, as well as right thoracentesis. He is not complaining about any abdominal pain. REVIEW OF SYSTEMS: GENERAL: No fever or chills. However, he admits to some weakness and fatigue. CVS: No chest pain or palpitation. RESPIRATORY: No cough or expectoration. MEDICATIONS: Reviewed as per JAN. PHYSICAL EXAMINATION: VITAL SIGNS: Temperature 98.2, pulse 89, respirations 24, blood pressure 155/78, oxygen saturation 100% on room air. GENERAL: Not in any acute distress. Alert, awake, oriented, as well as coherent. HEENT: Oral mucosa is moist. Slightly icteric sclerae. CVS: S1, S2. Regular. LUNGS: Decreased breath sounds at the right base. ABDOMEN: Less distention than yesterday, nontender. Shifting dullness present. No palpable mass or hernia. Positive bowel sounds. EXTREMITIES: Warm. Trace bilateral leg edema. LABORATORY DATA: WBC 1.92, hemoglobin 7.9, hematocrit 24.3, and platelet count 57. Sodium 134, potassium 4.2, chloride 103, bicarb 25, BUN 19, creatinine 1.08, and a glucose 135. Liver enzymes showed a total bilirubin 1.8, AST 25, ALT 20, alkaline phosphatase 57. IMPRESSION: 1. Cryptogenic/non-alcoholic steatohepatitis, decompensated liver cirrhosis with large ascites and underlying portal hypertension, splenorenal shunt with collaterals. 2. Splenic infarct. 3. 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 4. Anemia, pancytopenia. 5. 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 Hematology service has also been consulted. PLAN: Continue dual diuretics combination, combination of Lasix as well as spironolactone. Lactulose to ensure one or two bowel movements daily. Continue Xifaxan. Low-salt diet. I will send ascitic fluid for cell count, culture. We will also check a viral hepatitis serology. Again, I emphasized to the patient that he should have a strict outpatient management for decompensated liver cirrhosis. Bruno Whatley MD SA/CMAPBELL /[id number]
[2019-08-03] VITALS (8 sets, daily range): BP systolic 121–141; BP diastolic 57–65
[2019-08-03 00:13] LABS: BASOPHILS % 0.7 % (0.0-1.0); EOSINOPHILS # (AUTO) 0.1 (0.0-0.4); EOSINOPHILS % 3.7 % (0.0-6.0); HEMATOCRIT 21.6 % (38.2-49.6); HEMOGLOBIN 7.1 g/dL (14.0-18.0); LYMPHOCYTES # (AUTO) 0.4 (1.0-3.2); LYMPHOCYTES % 29.6 % (18.0-39.1); MEAN CORPUSCULAR HEMOGLOBIN 30.5 pg (28-32); MEAN CORPUSCULAR HGB CONC 32.9 g/dL (31-35); MEAN CORPUSCULAR VOLUME 92.7 fL (81-99); MONOCYTES # (AUTO) 0.2 (0.2-0.8); MONOCYTES % 12.6 % (4.4-11.3); NEUTROPHILS # (AUTO) 0.7 (2.1-6.9); NEUTROPHILS % 52.7 % (38.7-80.0); RED BLOOD COUNT 2.33 x10e6/uL (4.3-5.7); RED CELL DISTRIBUTION WIDTH 17.5 % (11.7-14.4)
[2019-08-03 00:28] LABS: PLATELET COUNT 48 x10e3/uL (140-360)
--- NOTE | 2019-08-03 00:45 | NUR ---
Lab called about patient having a WBC of 1.35 and platelet of 48. Called Dr. Frank Prasad about the lab results and he said to not do anything.
[2019-08-03] MEDS: CEFEPIME 2 GM/NS 0.9% 100 ML 100 ML IV SCH ×2 (04:10→16:00)
[2019-08-03] MEDS ORDERED: SODIUM CHLORIDE 0.9% 250ML 250 ML ONE (04:17)
[2019-08-03 04:44] LABS: EOSINOPHILS % (MANUAL) 2 % (0-7); LYMPHOCYTES % (MANUAL) 30 % (19-48); MONOCYTES % (MANUAL) 13 % (3.4-9.0); NEUTROPHILS % (MANUAL) 55 % (40-74)
[2019-08-03 04:45] LABS: HELMET CELLS MARKED; HYPOCHROMASIA MARKED
[2019-08-03 04:46] LABS: RBC MORPHOLOGY COMMENT ABNORMAL
[2019-08-03 04:48] LABS: PLATELET ESTIMATE MARKEDLY DECREASED; PLATELET MORPHOLOGY COMMENT NORMAL
[2019-08-03 06:15] LABS: BASOPHILS % 0.8 % (0.0-1.0); EOSINOPHILS % 3.3 % (0.0-6.0); HEMATOCRIT 23.5 % (38.2-49.6); HEMOGLOBIN 7.6 g/dL (14.0-18.0); LYMPHOCYTES # (AUTO) 0.3 (1.0-3.2); LYMPHOCYTES % 24.4 % (18.0-39.1); MEAN CORPUSCULAR HEMOGLOBIN 30.4 pg (28-32); MEAN CORPUSCULAR HGB CONC 32.3 g/dL (31-35); MONOCYTES # (AUTO) 0.1 (0.2-0.8); MONOCYTES % 9.8 % (4.4-11.3); NEUTROPHILS # (AUTO) 0.8 (2.1-6.9); NEUTROPHILS % 60.9 % (38.7-80.0); RED CELL DISTRIBUTION WIDTH 17.4 % (11.7-14.4)
[2019-08-03 06:23] LABS: PLATELET COUNT 50 x10e3/uL (140-360)
[2019-08-03 07:04] LABS: ANISOCYTOSIS SLIGHT; ELLIPTOCYTE, RBC SLIGHT; EOSINOPHILS % (MANUAL) 2 % (0-7); LYMPHOCYTES % (MANUAL) 18 % (19-48); MONOCYTES % (MANUAL) 8 % (3.4-9.0); NEUTROPHILS % (MANUAL) 71 % (40-74); OVALOCYTES FEW; PLATELET ESTIMATE MARKEDLY DECREASED; PLATELET MORPHOLOGY COMMENT NORMAL; POLYCHROMASIA FEW; RBC MORPHOLOGY COMMENT ABNORMAL
--- NOTE | 2019-08-03 07:06 | NUR ---
Gave report to oncoming nurse. Call light within reach. Patient in bed.
--- NOTE | 2019-08-03 07:31 | NUR ---
Received patient this morning, patient a/ox3, in bed and no distress. Out going nurse reported blood transfusions for 2nd unit was cancelled, called lab to verify and they confirmed it was cancelled. Will monitor.
[2019-08-03] MEDS: PANTOPRAZOLE 40 MG 10ML VIAL IV SCH ×2 (08:28→20:34)
[2019-08-03] MEDS: FUROSEMIDE 40 MG TAB PO SCH (08:38)
[2019-08-03] MEDS: RIFAXIMIN 550 MG TABLET PO SCH ×2 (08:38→17:39)
[2019-08-03] MEDS: SPIRONOLACTONE 25 MG TAB PO SCH (08:38)
--- NOTE | 2019-08-03 09:57 | NUR ---
Rounds by Lee Ahuja for Dr. Bass and to change patient to GI soft diet, if tolerates, ok to discharge patient from his perspective.
[2019-08-03] MEDS ORDERED: SODIUM CHLORIDE 0.9% 250ML 250 ML IV NR (11:00)
[2019-08-03] MEDS ORDERED: FUROSEMIDE INJ 10 MG/ML 4 ML VIAL IV NR (11:00)
--- NOTE | 2019-08-03 11:02 | NUR ---
Rounds by Dr. Russ and questioning why blood was cancelled yesterday, spoke with housekeeping laundry worker who will follow up but 1 more unit of blood ordered at this time and D-Dimer ordered as well.
[2019-08-03 12:07] LABS: BASOPHILS % 0.7 % (0.0-1.0); EOSINOPHILS # (AUTO) 0.1 (0.0-0.4); EOSINOPHILS % 3.5 % (0.0-6.0); HEMATOCRIT 25.9 % (38.2-49.6); HEMOGLOBIN 8.5 g/dL (14.0-18.0); LYMPHOCYTES # (AUTO) 0.4 (1.0-3.2); LYMPHOCYTES % 25.5 % (18.0-39.1); MEAN CORPUSCULAR HEMOGLOBIN 30.6 pg (28-32); MEAN CORPUSCULAR HGB CONC 32.8 g/dL (31-35); MEAN CORPUSCULAR VOLUME 93.2 fL (81-99); MONOCYTES # (AUTO) 0.1 (0.2-0.8); MONOCYTES % 9.9 % (4.4-11.3); NEUTROPHILS # (AUTO) 0.8 (2.1-6.9); RED BLOOD COUNT 2.78 x10e6/uL (4.3-5.7); RED CELL DISTRIBUTION WIDTH 17.1 % (11.7-14.4)
[2019-08-03 12:12] LABS: PLATELET COUNT 51 x10e3/uL (140-360)
--- NOTE | 2019-08-03 13:10 | NUR ---
Dr. Trujillo discharged patient but notified career guidance technician wanted him to get one more unit of blood and discharge tomorrow and he wants discharge moved to tomorrow 08/04/19
--- NOTE | 2019-08-03 14:16 | NUR ---
Patient alert and responsive, no resp distress. Started blood transfusion at this time and no reaction noted. Tolerating well and will monitor.
--- NOTE | 2019-08-03 16:57 | Discharge Summary ---
HOSPITAL COURSE: The patient is a 34-year-old male with past medical history positive for primary biliary cirrhosis, came here with abdominal pain. He was found to have splenic infarcts. The patient has also pancytopenia due to cirrhosis of the liver. He underwent a thoracentesis, paracentesis, so far cultures are negative. The patient was seen by Dr. Whatley from the Gastroenterology point of view, who recommended to follow up with him for a referral for [facility] for liver transplant. Also, patient was seen by Dr. Izaiah Muñoz, hemato-oncologist. The recommendation is not to use Neupogen for the leukopenia due to the fact that the patient has a splenic infarct and it can make the situation worse. He recommended to follow up with Gastroenterology for possible liver transplant. The patient was found to have UTI, started on IV antibiotics. Going to be discharged home with Bactrim DS one tablet twice a day for 10 days based on the sensitivity to the antibiotic for the urinary tract infection. PHYSICAL EXAMINATION: VITAL SIGNS: Blood pressure 121/61, temperature 98.5, heart rate 86 per minute, respiratory rate 18 per minute, O2 saturation 97%. The urine culture showed E coli. HEART: Showed regular rhythm. Normal S1, S2 sound. LUNGS: Clear bilaterally. ABDOMEN: Soft. LABORATORY DATA: On the BMP; sodium of 134, potassium 4.2 chloride 103, CO2 25, BUN 19, creatinine 1.08, glucose 135. On the CBC; white count 1.41, hemoglobin 8.5, hematocrit 25.9, platelet count 51,000. PT 19.1, INR 1.54, PTT 38.0, AST 25, ALT 20, total bilirubin 1.8, alkaline phosphatase 57. FINAL IMPRESSION: 1. Cirrhosis with ascites status post paracentesis, status post thoracentesis. 2. Urinary tract infection. 3. Pancytopenia secondary to hypersplenism. 4. Splenic infarcts. PLAN OF TREATMENT: Continue Bactrim DS one tablet twice a day for 10 days. Continue with furosemide 40 mg daily, spironolactone 100 mg daily, lactulose 20 g daily, Xifaxan 550 mg twice a day. The patient is going to follow up with Dr. Whatley, Gastroenterology for referral for [facility] for possible transplant. The patient is told to abstain from using any kind of nonsteroidal anti-inflammatory drugs and also minimize the use of Tylenol as much possible and avoid alcohol of course. MD ERIC Rossi/CAMPBELL /[id number]
[2019-08-03 18:57] LABS: BASOPHILS % 0.6 % (0.0-1.0); EOSINOPHILS # (AUTO) 0.1 (0.0-0.4); EOSINOPHILS % 2.9 % (0.0-6.0); HEMATOCRIT 29.4 % (38.2-49.6); HEMOGLOBIN 9.6 g/dL (14.0-18.0); LYMPHOCYTES # (AUTO) 0.4 (1.0-3.2); LYMPHOCYTES % 22.4 % (18.0-39.1); MEAN CORPUSCULAR HEMOGLOBIN 30.1 pg (28-32); MEAN CORPUSCULAR HGB CONC 32.7 g/dL (31-35); MEAN CORPUSCULAR VOLUME 92.2 fL (81-99); MONOCYTES # (AUTO) 0.2 (0.2-0.8); MONOCYTES % 9.4 % (4.4-11.3); NEUTROPHILS # (AUTO) 1.1 (2.1-6.9); NEUTROPHILS % 64.1 % (38.7-80.0); PLATELET COUNT 53 x10e3/uL (140-360); RED BLOOD COUNT 3.19 x10e6/uL (4.3-5.7); RED CELL DISTRIBUTION WIDTH 17.5 % (11.7-14.4)
--- NOTE | 2019-08-03 19:05 | NUR ---
RECEIVED REPORT FROM PREVIOUS NURSE. CALL LIGHT WITHIN REACH. PATIENT IN BED
[2019-08-03 19:29] LABS: EOSINOPHILS % (MANUAL) 3 % (0-7); LYMPHOCYTES % (MANUAL) 28 % (19-48); MONOCYTES % (MANUAL) 4 % (3.4-9.0); NEUTROPHILS % (MANUAL) 65 % (40-74)
[2019-08-03 19:30] LABS: PLATELET ESTIMATE MODERATELY DECREASED; PLATELET MORPHOLOGY COMMENT NORMAL; RBC MORPHOLOGY COMMENT NORMAL
--- NOTE | 2019-08-03 19:32 | Consultation ---
DATE OF CONSULTATION: 08/02/[address] Trujillo. HISTORY OF PRESENT ILLNESS: Terell Deutsch is a 34-year-old male referred to me for evaluation of pancytopenia, history of cryptogenic cirrhosis. The patient had presented with abdominal pain, subsequently was found to have multiple splenic infarcts. SOCIAL HISTORY: Noncontributory. FAMILY HISTORY: Noncontributory. REVIEW OF SYSTEMS: HEENT: Normal. CARDIAC: Normal. RESPIRATORY: Normal. GI: Cryptogenic cirrhosis. : Normal. MUSCULOSKELETAL: Normal. SKIN: Normal. BREASTS: Normal. NEUROENDOCRINE: Normal. PHYSICAL EXAMINATION: GENERAL: A rather obese male, anemic. NECK: No palpable adenopathy. HEART: Within normal limits. LUNGS: Clear. ABDOMEN: Obese. Ascites is felt. RECTAL: Deferred. CENTRAL NERVOUS SYSTEM: Essentially normal. EXTREMITIES: Essentially normal. LABORATORY DATA: Lab shows a sodium of 134, potassium 4.2, chloride 103, CO2 of 25, BUN 19, creatinine 1.08, glucose 135. Hemoglobin of 6.4, hematocrit of 20, platelets of 39,000, white count of 1650. ANC is less than 1000. INR 1.5. Bilirubin 1.8. SGOT 25, SGPT 20, alkaline phosphatase 57. CAT scan of the abdomen is showing splenic infarcts. IMPRESSION: 1. Cirrhosis of liver. 2. Ascites. 3. Splenic infarcts. 4. Anemia. 5. Neutropenia. 6. Thrombocytopenia. 7. . 8. Hypocalcemia. 9. Hyperbilirubinemia. 10. Hypoproteinemia. 11. Hypoalbuminemia. 12. Portal hypertension. PLAN: To give him platelets and blood. I will not give him Neupogen, even though neutropenic as there have reports of splenic ruptures with Neupogen. I have come to know that the patient will be referred to transplant team. Thank you very much for allowing me to participate in the management of this patient. MD SHERICE Vieira/MODL /[id number] cc: Brian Truijllo MD
[2019-08-04 00:41] VITALS: BP 127/60
[2019-08-04] MEDS: CEFEPIME 2 GM/NS 0.9% 100 ML 100 ML IV SCH (04:03)
[2019-08-04 05:13] VITALS: BP 115/56
[2019-08-04 06:18] LABS: EOSINOPHILS # (AUTO) 0.1 (0.0-0.4); EOSINOPHILS % 3.7 % (0.0-6.0); HEMATOCRIT 27.1 % (38.2-49.6); HEMOGLOBIN 8.6 g/dL (14.0-18.0); LYMPHOCYTES # (AUTO) 0.3 (1.0-3.2); LYMPHOCYTES % 21.3 % (18.0-39.1); MEAN CORPUSCULAR HEMOGLOBIN 29.5 pg (28-32); MEAN CORPUSCULAR HGB CONC 31.7 g/dL (31-35); MEAN CORPUSCULAR VOLUME 92.8 fL (81-99); MONOCYTES # (AUTO) 0.1 (0.2-0.8); MONOCYTES % 10.3 % (4.4-11.3); NEUTROPHILS # (AUTO) 0.9 (2.1-6.9); RED BLOOD COUNT 2.92 x10e6/uL (4.3-5.7); RED CELL DISTRIBUTION WIDTH 17.5 % (11.7-14.4)
[2019-08-04 06:29] LABS: PLATELET COUNT 45 x10e3/uL (140-360)
--- NOTE | 2019-08-04 07:18 | NUR ---
Gave report to oncoming nurse. call light within reach. Patient in bed.
--- NOTE | 2019-08-04 07:30 | NUR ---
Received patient this morning, a/ox3, no resp distress, call light within reach, no c/o pains, rounds completed, will monitor.
[2019-08-04 08:00] VITALS: BP 120/58
[2019-08-04 08:01] LABS: EOSINOPHILS % (MANUAL) 3 % (0-7); LYMPHOCYTES % (MANUAL) 28 % (19-48); MONOCYTES % (MANUAL) 4 % (3.4-9.0); NEUTROPHILS % (MANUAL) 65 % (40-74); PLATELET ESTIMATE MODERATELY DECREASED; PLATELET MORPHOLOGY COMMENT NORMAL; RBC MORPHOLOGY COMMENT NORMAL
[2019-08-04] MEDS: RIFAXIMIN 550 MG TABLET PO SCH (09:00)
[2019-08-04] MEDS: SPIRONOLACTONE 25 MG TAB PO SCH (09:00)
[2019-08-04] MEDS: PANTOPRAZOLE 40 MG 10ML VIAL IV SCH (09:00)
[2019-08-04] MEDS: FUROSEMIDE 40 MG TAB PO SCH (09:00)
[2019-08-04 10:03] VITALS: BP 120/58
[2019-08-04 12:00] VITALS: BP 123/61
--- NOTE | 2019-08-04 12:37 | NUR ---
Call to Dr. Russ regarding seeing patient today. He will come in and see patient before discharge today if labs stable.
[2019-08-04] MEDS ORDERED: LASIX40 MG PO (14:02)
[2019-08-04] MEDS ORDERED: SPIRONOLACTONE25 MG PO (14:02)
[2019-08-04] MEDS ORDERED: XIFAXAN550 MG PO (14:03)
[2019-08-04] MEDS ORDERED: BACTRIM DS TAB1 EACH PO (14:04)
[2019-08-04] MEDS ORDERED: KRISTALOSE20 GM PO (14:04)
--- NOTE | 2019-08-04 14:21 | NUR ---
Rounds by mortgage banker and cleared patient for discharge. Provided patient with prescriptions, discharge summary and contacts for f/u appts. IV line removed and cath tip in place, patient discharged.
--- NOTE | 2019-08-04 15:05 | NUR ---
Visit made by the Spiritual Care Department Pastoral Visitor, Jf Patrick. Pt out of room and no family at bedside. A card was left at the bedside to indicate a missed visit from a member of the Spiritual Care team and to inform the pt and family of the availability of a Counseling Center Director 24 hours a day/7 days a week. A sign painter will follow up as able. MIRANDA Kaurlain Spiritual Care Department O: [phone] Pager: [phone] ([phone] number calling from)
--- NOTE | 2019-08-05 06:09 | Discharge Summary ---
HOSPITAL COURSE: Get Figueredo is a 34-year-old male, who has past medical history positive for hepatic cirrhosis of the liver, came here with left upper quadrant pain. He was found to have cirrhosis of the liver, some infarcts on the spleen. The patient had thoracentesis, paracentesis done, which showed no evidence of any infection, some blood in the ascites. The patient has been seen by Izaiah Muñoz of Hematology/Oncology, Dr. Whatley for gastroenterology. The patient for surgery. The patient got blood transfusion. He had pancytopenia due to hypersplenism and portal hypertension, cirrhosis of the liver. Dr. Whatley recommended to follow with him in approximately a week for a referral for [facility] for possible liver transplant. The patient is asymptomatic otherwise. PHYSICAL EXAMINATION: VITAL SIGNS: Blood pressure 123/61, temperature 97.3, heart rate 84 per minute, respiratory rate 20 per minute, and oxygen saturation 97%. ABDOMEN: Soft and nontender. No distention. No visceromegaly. LABORATORY DATA: On BMP; sodium 134, potassium 4.2, chloride 103, CO2 25, BUN 19, creatinine 1.08, and glucose 135. On CBC, 1.36, hemoglobin 8.6, hematocrit 27.1, and platelet count 45,000. PT 19.1, INR 1.54, PTT 38.0, AST 25, ALT 20, total bilirubin 1.8, and alkaline phosphatase 57. FINAL IMPRESSION: 1. Cirrhosis of the liver with ascites. 2. Pancytopenia secondary to hypersplenism. 3. Splenic infarcts. 4. Coagulopathy secondary to liver failure. 5. Urinary tract infection. PLAN OF TREATMENT: The patient is going to be discharged home on the medication I already dictated yesterday. Also, he is going to get Bactrim DS one tablet twice a day for 10 days because of UTI, furosemide 40 mg daily, Aldactone 100 mg daily, lactulose 20 g daily, and Xifaxan 550 mg twice a day. FOLLOWUP: The patient is going to follow up with Dr. Whatley of the Gastroenterology for an evaluation for a possible referral for [facility]. DIET: Low-salt diet. Brian Trujillo MD LAS/MODL /[id number]
--- NOTE | 2019-08-05 08:37 | Diagnostic Imaging Report ---
PROCEDURE: Ultrasound-guided thoracentesis Procedural Personnel Attending physician(s): Hernan Diaz MD Fellow physician(s): None Resident physician(s): None Advanced practice provider(s): None Pre-procedure diagnosis: Right pleural effusion Post-procedure diagnosis: Same Indication: Pleural effusion with suspicion of infection Additional clinical history: None Complications: No immediate complications. IMPRESSION: Ultrasound-guided thoracentesis with drainage of 500 mL of serous fluid. Plan: Resume care by clinical team. PROCEDURE SUMMARY: - Limited thoracic ultrasound - Ultrasound-guided thoracentesis - Additional procedure(s): None PROCEDURE DETAILS: Pre-procedure Consent: Informed consent for the procedure including risks, benefits and alternatives was obtained and time-out was performed prior to the procedure. Preparation: The site was prepared and draped using maximal sterile barrier technique including cutaneous antisepsis. Anesthesia/sedation Level of anesthesia/sedation: No sedation Anesthesia/sedation administered by: Not applicable Limited thoracic ultrasound Limited thoracic ultrasound was performed using a curved transducer. A safe window for thoracentesis was identified. Left hemithorax findings: Not investigated Right hemithorax findings: Moderate pleural effusion Thoracentesis Local anesthesia was administered. The pleural space was accessed and fluid return confirmed position. The fluid was drained. The catheter was removed, and a sterile bandage was applied. Catheter placed: 5F Laureneh Post-drainage hemithorax findings: No visible pleural effusion Additional Details Additional description of procedure: None Equipment details: None Specimens removed: Pleural fluid Estimated blood loss (mL): Less than 10 Standardized report: [email or web address] Attestation Signer name: Hernan Diaz MD I attest that I was present for the entire procedure. I reviewed the stored images and agree with the report as written. Signed by: Hernan Diaz MD on 08/05/2019 8:33 AM
--- NOTE | 2019-08-05 08:38 | Diagnostic Imaging Report ---
PROCEDURE: Ultrasound-guided paracentesis Procedural Personnel Attending physician(s): Hernan Diaz MD Pre-procedure diagnosis: Cirrhosis, abdominal pain, ascites Post-procedure diagnosis: Same Indication: Ascites with pain or pressure symptoms Additional clinical history: None Complications: No immediate complications. IMPRESSION: Ultrasound-guided paracentesis with drainage of 2400 mL of serous fluid. Plan: Resume care by clinical team. PROCEDURE SUMMARY: - Limited abdominal ultrasound - Ultrasound-guided paracentesis - Additional procedure(s): None PROCEDURE DETAILS: Pre-procedure Consent: Informed consent for the procedure including risks, benefits and alternatives was obtained and time-out was performed prior to the procedure. Preparation: The site was prepared and draped using maximal sterile barrier technique including cutaneous antisepsis. Anesthesia/sedation Level of anesthesia/sedation: No sedation Anesthesia/sedation administered by: Not applicable Initial abdominal ultrasound Initial abdominal ultrasound was performed. Findings: Moderate ascites. A safe window for paracentesis was identified. Paracentesis Local anesthesia was administered. The peritoneal cavity was accessed and fluid return confirmed position. Ascites was drained. The catheter was then removed, and a sterile bandage was applied. Paracentesis access technique: Real-time ultrasound guidance Catheter placed: 5F Yueh Post-drainage ultrasound: No visible ascites Additional Details Additional description of procedure: None Equipment details: None Specimens removed: Abdominal fluid Estimated blood loss (mL): Less than 10 Standardized report: [email or web address] Attestation Signer name: Hernan Diaz MD I attest that I was present for the entire procedure. I reviewed the stored images and agree with the report as written. Signed by: Hernan Diaz MD on 08/05/2019 8:35 AM
== END 2019-08-04 14:40 | disposition home or self-care (01) | DRG 815 ==
LOC: ER 10:04 → ERHOLD 17:18 → ICU 20:10 → MED/SURG 08-02 20:34
PROVIDERS: ADMIT Internal Medicine; ATTEND Internal Medicine
PROC: 0W9G3ZZ Drainage of Peritoneal Cavity, Percutaneous Approach (ICD-10-PCS; principal; 2019-08-02)
DX: D73.5 Infarction of spleen (principal); D61.818 Other pancytopenia; Z68.41 Body mass index [BMI] 40.0-44.9, adult; N39.0 Urinary tract infection, site not specified; R18.8 Other ascites; J94.8 Other specified pleural conditions; K76.6 Portal hypertension; D68.4 Acquired coagulation factor deficiency; K74.60 Unspecified cirrhosis of liver; K75.81 Nonalcoholic steatohepatitis (NASH)
CPT/HCPCS: 32555; 36415; 49083; 71045; 74176; 74178; 74470; 80053; 81001; 82150; 82550; 82553; 83690; 83880; 84484; 85025; 85379; 85610; 85730; 86850; 86900; 86920; 86945; 87040; 87070; 87086; 87186; 87205; 88112; 88305; 89051; 93306; 99284; C1729; J1200; J1720; J1940; J2001; J2270; J2353; J2354; J2405; J3370; J7050; P9016; P9017; P9034; Q9967